=== PATIENT | female | born 1945 | race Caucasian/White ===

== ENCOUNTER 2017-02-13 16:44 | Inpatient (IN) | payer OTHER ==
[~2017-02-13] VITALS: Ht 8 cm; Wt 88.0 kg
--- NOTE | ~2017-02-13 | EKG ---
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: [facility] [place] : 1945 Requested By: Tamanna Haas Order Number: [id number] MD: Jorge Koehler Measurements Intervals [place] Rate: 61 P: 9 [place]: 161 QRS: -9 QRSD: 87 T: 40 QT: 445 QTc: 449 Interpretive Statements Sinus rhythm Borderline T wave abnormalities Compared to ECG 02/13/2017 16:45:57 T-wave abnormality now present Atrial fibrillation no longer present Electronically Signed On 02-14-2017 13:23:29 CDT by Jorge Koehler [email or web address] <ELECTRONICALLY SIGNED> By: Jorge Koehler MD 02/14/17 1323 1 0902 Jorge Koehler MD /EPI
--- NOTE | ~2017-02-13 | 2DMMODE ---
[facility] [address] [place] [address] 2 D/M-MODE ECHOCARDIOGRAM Name: LORRAINE ROY Room #: 203-P ADM IN .R.#: [id number] Admission: 02/13/17 Attend Phys: Kristopher Bennett Discharge: Date of : 43 Date of Service: 02/14/17 0922 Report #: [id number] THIS REPORT FOR: //name// APPROVED REPORT Study performed: 02/14/2017 08:34:18 EXAM: Comprehensive 2D, Doppler, and color-flow Echocardiogram Patient Location: Echo lab Room #: [facility] Status: routine Other Information Study Quality: Adequate Indications Atrial Fibrillation Chest Pain 2D Dimensions RVDd: 32.34 mm LVEF(%): 68.59 (>50%) IVSd: 11.87 (7-11mm) LVOT Diam: 20.55 (18-24mm) LVDd: 42.22 mm PWd: 11.39 (7-11mm) Ascending Ao: 40.17 (22-36mm) LVDs: 26.16 (25-40mm) Aortic Root: 32.36 mm Oneal's LVEF: 68.59 % Volumes Left Atrial Volume (Systole) Single Plane 4CH: 43.99 mL Single Plane 2CH: 46.25 mL LA ESV Index: 24.00 mL/m2 Aortic Valve AoV Peak Tai.: 1.45 m/s AO Peak Gr.: 8.45 mmHg LVOT Max P.68 mmHg LVOT Max V: 1.39 m/s FORTINO Vmax: 3.16 cm2 Mitral Valve E/A Ratio: 1.4 MV Decel. Time: 241.63 ms MV E Max Tai.: 0.90 m/s MV A Tai.: 0.64 m/s MV PHT: 70.07 ms [facility] [place] [address] 2 D/M-MODE ECHOCARDIOGRAM Name: LORRAINE ROY Room #: 203-P [facility] IN ..#: [id number] Admission: 02/13/17 Attend Phys: Kristopher Bennett Discharge: Date of : 43 Date of Service: 02/14/17 0922 Report #: [id number] IVRT: 78.43 ms Pulmonary Valve PV Peak Tai.: 0.91 m/s PV Peak Gr.: 3.29 mmHg Pulmonary Vein P Vein S: 0.60 m/s P Vein A: 0.30 m/s P Vein D: 0.49 m/s P Vein A Dur.: 101.5 msec P Vein S/D Ratio: 1.22 Tricuspid Valve TR Peak Tai.: 2.52 m/s RAP Estimate: 5.00 mmHg TR Peak Gr.: 25.47 mmHg PA Pressure: 30.00 mmHg Left Ventricle The left ventricle is normal size. There is normal LV segmental wall motion. Mild concentric left ventricular hypertrophy. Left ventricular systolic function is normal. LVEF is 55-60%. The left ventricular diastolic function is normal. Right Ventricle The right ventricle is normal size. The right ventricular systolic function is normal. Atria The left atrium size is normal. The right atrium size is normal. Aortic Valve Aortic valve is mildly calcified. Trace aortic regurgitation. There is no aortic valvular stenosis. Mitral Valve The mitral valve is normal in structure. No mitral regurgitation. No evidence of mitral valve stenosis. Tricuspid Valve The tricuspid valve is normal in structure. There is mild tricuspid regurgitation. The right atrial pressure is estimated at 5 mmHg. There is borderline mild pulmonary hypertension with an estimated PAP of 30mmHg. Pulmonic Valve The pulmonary valve is normal in structure. Trace pulmonic regurgitation. [facility] [address] [place] [address] 2 D/M-MODE ECHOCARDIOGRAM Name: JETTInocenteLORRAINE Room #: 203-P ADM IN [facility].#: [id number] Admission: 02/13/17 Attend Phys: Kristopher Bennett Discharge: Date of : 43 Date of Service: 02/14/17 0922 Report #: [id number] Great Vessels The aortic root is normal in size. The ascending aorta is mildly dilated (4.0cm) The ascending aorta is normal in size. IVC is normal in size and collapses >50% with inspiration. Pericardium There is no pericardial effusion. <Conclusion> Left ventricular systolic function is normal. There is normal LV segmental wall motion. LVEF is 55-60%. Diastolic function is normal. Aortic valve is mildly calcified. No aortic valvular stenosis or insufficiency. The mitral valve is normal in structure. No mitral regurgitation. Mild dilatation of ascending aorta 4.0cm There is no pericardial effusion. <ELECTRONICALLY SIGNED> By: Christopher Robert MD, [facility] 02/14/17921 1 1 Christopher Robert MD, FACC /INF
--- NOTE | ~2017-02-13 | EKG ---
[address] [address] ELECTROCARDIOGRAM REPORT Name: LORRAINE ROY Room #: 203-P ADM IN M.R.#: [id number] Admission: 02/13/17 Attend Phys: Aaron Gonzalez MD Discharge: Date of : 43 Report #: [id number] THIS REPORT FOR: //name// [facility] ED Test Date: 2017-02-13 Test Time: 16:45:57 Pat Name: LORRAINE ROY Department: Room: 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1945 Requested By: Bryson Santos Order Number: [id number] MD: Christiano Chappell Measurements Intervals [place] Rate: 130 P: [place]: QRS: -16 QRSD: 81 T: 110 QT: 284 QTc: 418 Interpretive Statements Atrial fibrillation Probable LVH with secondary repol abnrm Compared to ECG 10/28/2016 15:23:50 Sinus rhythm no longer present Myocardial infarct finding no longer present Electronically Signed On 02-14-2017 8:57:05 CDT by Christiano Chappell [email or web address] <ELECTRONICALLY SIGNED> By: Christiano Chappell MD 02/14/17 0857 44 Christiano Chappell MD /PAUL
--- NOTE | ~2017-02-13 | H ---
[facility] [place] [address] HISTORY AND PHYSICAL Name: MARINAGENALORRAINE Room #: 203-P [facility] IN M.R.#: [id number] Admission: 02/13/17 Attend Phys: Aaron Gonzalez MD Discharge: 02/14/17 Date of : 43 Report #: [id number] THIS REPORT FOR: //name// CC: Vilma Gonzalez DATE OF SERVICE: 02/13/2017 CHIEF COMPLAINT: Chest pain, pressure. HISTORY OF PRESENT ILLNESS: The patient is a 71-year-old female with paroxysmal atrial fibrillation, presented to the emergency room complaining of chest pain, weakness, and prior chest pressure. Symptoms started this morning. She has history of paroxysmal atrial fibrillation. She was seen in the emergency room in October of 2016 and responded well to three 120 mg tablets of flecainide. The patient is improved and she was discharged back home. She is followed up by med spa manager at [facility]. She takes aspirin and Cardizem regularly and takes flecainide as needed when she has palpitations. She describes the pressure over the retrosternal area with no radiation. No dizziness. No fever or chills. No shortness of breath at present. The patient was found to be in atrial fibrillation with rapid ventricular rate. The patient has been started on a Cardizem drip. Presently she is on Cardizem at 15 mg per hour. PAST MEDICAL HISTORY: Significant for hypertension, anxiety, AFib, sleep apnea on CPAP, Charcot-Mary syndrome. ALLERGIES: No known drug allergy. HOME MEDICATIONS: Include lorazepam and Cardizem. SOCIAL HISTORY: No smoking, alcohol abuse, or illicit drug abuse. FAMILY HISTORY: Significant for hypertension. REVIEW OF SYSTEMS: CONSTITUTIONAL: She has gained some little weight, unable to quantify. No fever or chills. EYES: No change in vision. THROAT: Denies any sore throat. CARDIOVASCULAR: As above. RESPIRATORY: No cough or expectoration. GASTROINTESTINAL: No nausea, vomiting, abdominal pain. GENITOURINARY: No dysuria, hematuria. NEUROLOGIC: No focal numbness or weakness of the extremity. PSYCHIATRIC: History of anxiety. [facility] [address] [place] [address] HISTORY AND PHYSICAL Name: LORRAINE ROY Juancarlos Room #: 203-P [facility] IN [facility].#: [id number] Admission: 02/13/17 Attend Phys: Aaron Gonzalez MD Discharge: 02/14/17 Date of : 43 Report #: [id number] The 12-point review of system is negative other than the positive and negative dictated in the history of present illness and in the review of system. PHYSICAL EXAMINATION: VITAL SIGNS: Blood pressure is 153/103, heart rate of 120 per minute, afebrile. GENERAL: The patient is awake and alert, not in acute respiratory distress. EYES: Pupils equal, reactive to light, nonicteric, conjunctivae. Throat appears normal. NECK: Supple, no JVD, no bruit, no lymphadenopathy. CARDIOVASCULAR SYSTEM: S1, S2, negative S3, no murmur. Tachycardic. Irregularly irregular. CHEST: Bilateral air entry present. Clear on auscultation. ABDOMEN: Soft, bowel sounds present, no mass, no organomegaly, no tenderness. PERIPHERY: No pedal edema. No calf tenderness. Dorsalis pedis 1+. NEUROLOGICAL: No gross motor or sensory deficit. LABORATORY DATA: Reviewed. EKG showed atrial fibrillation with rapid ventricular rate. Probable LVH, heart rate is 130 per minute. White count is 8.9, normal hemoglobin and hematocrit, platelet is 176. Chemistry showed a BUN of 14, creatinine of 0.9, calcium is 10.3. BNP is 759. Troponin less than 0.04. TSH is pending. Chest x-ray showed no acute abnormality. ASSESSMENT AND PLAN: 1. Atrial fibrillation with rapid ventricular response. The patient will be continued on Cardizem drip. We will obtain echocardiogram. The patient also will be placed on Lovenox. Cardiology will be consulted. 2. We will try to obtain report from [facility]. 3. History of sleep apnea. The patient will continue to use her CPAP at night. 4. History of anxiety, on p.r.n. lorazepam, negative thrombosis prophylaxis, on Lovenox. Treatment plan has been explained to the patient in detail. <ELECTRONICALLY SIGNED> By: Aaron Gonzalez MD 02/14/17 1315 15 41 Aaron Gonzalez MD /nt
[~2017-02-13 16:44] MED LIST: ASPIR 8181 M1 PO; ATIVAN0.5 MG PO; CARDIZEM CD120 MG PO; CARDIZEM CD180 MG PO; ELIQUIS5 MG PO; ETODOLAC500 MG PO; KEFLEX500 MG PO; LIPITOR10 MG PO; NORCO 5-325 TA1 EACH PO; NORVASC 2.5 MG2.5 M1 PO; PHENERGAN 25 MG25 M1 PO; TRAMADOL 50 MG50 MG PO; ULTRAM 50MG TAB50 MG PO; ZOFRAN ODT4 MG PO
[2017-02-13 16:45] VITALS: BP 137/78
[2017-02-13 17:07] LABS: ABSOLUTE NEUTROPHILS 5.9 thou/uL (1.4-8.2); BASOPHILS 0.5 % (0.0-2.0); EOSINOPHILS 0.5 % (0.0-3.0); HEMATOCRIT 42.2 % (37.0-47.0); MCH 29.2 pg (26.0-34.0); MCHC 33.1 g/dL (28.0-37.0); MCV 88.2 fL (80.0-100.0); MONOCYTES 9.8 % (1.0-8.0); PLATELET COUNT 176 thou/uL (150-400); POLYS 66.2 % (36.0-66.0); RBC 4.78 mil/uL (4.20-5.00); RDW 13.6 % (10.5-14.5); WBC 8.9 thou/uL (4.0-11.0)
[2017-02-13 17:09] LABS: MANUAL DIFF NO
[2017-02-13 17:12] LABS: ANION GAP 8 mmol/L (7-16); BUN 14 mg/dL (7-18); CALCIUM 10.3 mg/dL (8.5-10.1); CHLORIDE 105 mmol/L (98-107); CO2 28 mmol/L (21-32); CREATININE 0.9 mg/dL (0.6-1.0); GLUCOSE 106 mg/dL (74-106); POTASSIUM 3.6 mmol/L (3.5-5.1); SODIUM 141 mmol/L (136-145)
[2017-02-13 17:25] LABS: NT-PRO BRAIN NAT PEPTIDE 759 pg/mL (<300); TROPONIN-I < 0.04 ng/mL (<0.04-0.07)
[2017-02-13 19:16] VITALS: BP 148/100
[2017-02-13 19:28] LABS: MAGNESIUM 2.1 mg/dL (1.8-2.4); TROPONIN-I < 0.04 ng/mL (<0.04-0.07)
[2017-02-13 23:37] VITALS: BP 88/51
[2017-02-14 03:16] VITALS: BP 91/56
[2017-02-14 07:20] VITALS: BP 100/58
[2017-02-14 08:33] LABS: CHOLESTEROL 178 mg/dL (<200); HDL CHOLESTEROL 66 mg/dL (>40); LDL CHOLESTEROL 92 mg/dL (<100); TC:HDL 2.7 Ratio (Not establshd); TRIGLYCERIDE 102 mg/dL (<150); VLDL 20 mg/dL (<40)
[2017-02-14 11:11] VITALS: BP 100/58
[2017-02-14 11:20] VITALS: BP 98/58
[2017-02-14] MEDS ORDERED: DILTIAZEM 24HR240 M1 PO (11:33)
[2017-02-14] MEDS ORDERED: PACERONE 200 M200 M1 PO (11:42)
[2017-02-14] MEDS ORDERED: ECOTRIN325 MG PO (11:53)
== END 2017-02-14 12:05 | disposition home or self-care (01) | DRG 310 ==
LOC: ER 16:44 → EROBS 18:00 → 2N 18:00
PROVIDERS: Internal Medicine; Physician Assistant
DX: I48.0 Paroxysmal atrial fibrillation (principal); I10 Essential (primary) hypertension; F41.9 Anxiety disorder, unspecified; G47.33 Obstructive sleep apnea (adult) (pediatric); G60.0 Hereditary motor and sensory neuropathy; Z82.49 Family history of ischemic heart disease and other diseases of the circulatory system; Z79.899 Other long term (current) drug therapy
CPT/HCPCS: 10081